=== PATIENT | female | born 1950 | race Caucasian/White ===

== ENCOUNTER 2020-01-21 20:23 | Emergency (ER) | payer BC, OTHER ==
[~2020-01-21] VITALS: Ht 157.5 cm; Wt 50.3 kg
[2020-01-21 20:41] VITALS: Ht 157.5 cm; Wt 50.3 kg
[2020-01-21 23:06] LABS: microscopic required? NO
[2020-01-21 23:10] LABS: urine erythrocyte NEGATIVE (NEGATIVE)
[2020-01-21 23:11] LABS: BASOPHIL % 0.3 % (0-2); PLATELET COUNT 165 x10^3mcL (130-400); RED CELL DISTRIBUTION WIDTH 13.2 % (11.5-14.5)
[2020-01-21 23:18] LABS: CALCIUM 8.8 mg/dL (8.5-10.1); CARBON DIOXIDE 28.9 mmol/L (21-32); CREATININE SERUM 1.2 mg/dL (0.6-1.0); POTASSIUM SERUM 3.8 mmol/L (3.5-5.1)
[2020-01-21 23:23] LABS: ALBUMIN 3.7 g/dL (3.4-5.0); BILIRUBIN TOTAL 0.4 mg/dL (0.20-1.00)
[2020-01-22 00:39] VITALS: BP 118/71
== END 2020-01-22 00:15 | disposition home or self-care (01) ==
LOC: ED 20:23
PROVIDERS: Emergency Medicine
DX: R42 Dizziness and giddiness (principal); I10 Essential (primary) hypertension; E86.0 Dehydration; Z88.0 Allergy status to penicillin; Z91.018 Allergy to other foods; Z98.890 Other specified postprocedural states
CPT/HCPCS: 36415